=== PATIENT | female | born 2000 ===

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

== ENCOUNTER 2018-06-01 15:47 | Emergency (ER) | payer MEDICAID, OTHER ==
--- NOTE | 2018-06-01 16:31 | ED PDOC ---
HPI: Abdomen Time Seen by Provider: 06/01/18 16:19 Chief Complaint (Nursing): Abdominal Pain History Per: Patient Onset/Duration Of Symptoms: Other (3 weeks) Current Symptoms Are (Timing): Still Present Severity: Mild Location Of Pain/Discomfort: RLQ, LLQ Quality Of Discomfort: Unable To Describe Associated Symptoms: Nausea, Vomiting, Diarrhea. denies: Fever, Urinary Symptoms Exacerbating Factors: None Additional Complaint(s): Lower abd pain bilat x 3 weeks assoc with NVD, blody stools and anorexia. Denies fever or urinary sxs Past Medical History Vital Signs: Last Vital Signs Temp 97.6 F 06/01/18 16:05 Pulse 75 06/01/18 16:05 Resp 18 06/01/18 16:05 BP 96/60 L 06/01/18 16:05 Pulse Ox 99 06/01/18 16:05 - Medical History PMH: No Chronic Diseases - Family History Family History: States: Unknown Family Hx - Home Medications Home Medications: Ambulatory Orders Medication Instructions Recorded Doxylamine/Pyridoxine HCl (B6) 1 each PO QPM #15 tablet. 04/23/17 [Diclekvng Bar 10-10 mg Tablet] Nitrofurantoin Macrocrystals 100 mg PO BID #14 cap 04/23/17 [Macrobid] Vit Calc,Iron,Folic 1 each PO DAILY #30 tablet 04/23/17 [ Vitamins] Doxycycline Monohydrate 100 mg PO BID #30 tablet 12/07/17 Ibuprofen [Motrin Tab] 600 mg PO Q8 PRN #60 tab 12/07/17 metroNIDAZOLE [Flagyl] 500 mg PO BID #30 tab 12/07/17 - Allergies Allergies/Adverse Reactions: Allergies Allergy/AdvReac Type Severity Reaction Status Date / Time No Known Allergies Allergy Verified 06/01/18 16:04 Review of Systems ROS Statement: Except As Marked, All Systems Reviewed And Found Negative Gastrointestinal: Positive for: Nausea, Vomiting, Abdominal Pain, Diarrhea, Hematochezia Physical Exam - Reviewed Nursing Documentation Reviewed: Yes Vital Signs Reviewed: Yes - Physical Exam Appears: Positive for: Non-toxic, No Acute Distress Head Exam: Positive for: ATRAUMATIC, NORMAL INSPECTION, NORMOCEPHALIC Skin: Positive for: Normal Color, Warm, DRY Eye Exam: Positive for: EOMI, Normal appearance, PERRL ENT: Positive for: Normal ENT Inspection Neck: Positive for: Normal, Painless ROM Cardiovascular/Chest: Positive for: Regular Rate, Rhythm Respiratory: Positive for: CNT, Normal Breath Sounds Gastrointestinal/Abdominal: Positive for: Soft, Tenderness (Lower quad bilat.). Negative for: Mass Back: Positive for: Normal Inspection Extremity: Positive for: Normal ROM Neurologic/Psych: Positive for: Alert, Oriented - Laboratory Results Result Diagrams: 06/01/18 16:46 06/01/18 17:55 - ECG O2 Sat by Pulse Oximetry: 99 Disposition - Clinical Impression Clinical Impression: Abdominal pain - Patient ED Disposition Is Patient to be Admitted: Transfer of Care - Disposition Disposition: Transfer of Care Disposition Time: 19:00 Condition: FAIR Forms: [facility] (Sinhala) Patient Signed Over To: Giovani Koehler
[2018-06-01 16:49] LABS: BASO # 0.1 K/uL (0.0-0.2); BASO % 1.3 % (0.0-2.0); EOS # 0.2 K/uL (0.0-0.7); HEMOGLOBIN 13.6 g/dL (12.0-16.0); LYMPH # 2.3 K/uL (1.0-4.3); LYMPH % 34.1 % (20.0-40.0); MEAN CELL VOLUME 82.9 fl (81.0-99.0); MEAN CORPUSCULAR HEMOGLOBIN 26.8 pg (27.0-31.0); MEAN CORPUSCULAR HGB CONC 32.4 g/dL (33.0-37.0); MEAN PLATELET VOLUME 8.6 fl (7.2-11.7); MONO # 0.6 K/uL (0.0-0.8); MONO % 8.3 % (0.0-10.0); NEUT # 3.7 K/uL (1.8-7.0); NEUT % 53.3 % (50.0-75.0); RBC 5.06 Mil/uL (3.80-5.20); RED CELL DISTRIBUTION WIDTH 13.9 % (11.5-14.5); WHITE BLOOD COUNT 6.9 K/uL (4.8-10.8)
[2018-06-01] MEDS ORDERED: Sodium Chloride 0.9% 50 ML IV ONE (17:27)
[2018-06-01] MEDS ORDERED: Iohexol 300 100 ML IJ ONE (17:27)
[2018-06-01 18:16] LABS: ALB/GLOB RATIO 1.2 (1.0-2.1); ALBUMIN 3.9 g/dL (3.5-5.0); ALT/SGPT 24 U/L (9-52); AST/SGOT 20 U/L (14-36); BLOOD UREA NITROGEN 12 mg/dl (7-17); GFR NON-AFRICAN AMERICAN > 60
[2018-06-01] MEDS ORDERED: Potassium Chloride 20 mEq ER Tab PO ONE ×2 (18:19→19:11)
--- NOTE | 2018-06-01 18:47 | CT ---
Date of service: 06/01/2018 PROCEDURE: CT Abdomen and Pelvis with contrast HISTORY: Unspecified abdominal pain. Negative test (concurrent with this examination). Vomiting. COMPARISON: None. TECHNIQUE: Intravenous contrast dose: 80 cc Omnipaque 300. Radiation dose: Total exam DLP = 202.45 mGy-cm. This CT exam was performed using one or more of the following dose reduction techniques: Automated exposure control, adjustment of the mA and/or kV according to patient size, and/or use of iterative reconstruction technique. FINDINGS: LOWER THORAX: Unremarkable. LIVER: Unremarkable. No gross lesion or ductal dilatation. GALLBLADDER AND BILE DUCTS: Unremarkable. PANCREAS: Unremarkable. No gross lesion or ductal dilatation. SPLEEN: Unremarkable. ADRENALS: Unremarkable. No mass. KIDNEYS AND URETERS: Unremarkable. No hydronephrosis. No solid mass. VASCULATURE: Unremarkable. No aortic aneurysm. No atherosclerotic calcification or mural plaque present. BOWEL: Constipation without fecal impaction or obstruction. APPENDIX: A normal appendix is visualized in it's entirety. PERITONEUM: Trace free fluid identified in the pelvis/cul de sac. No free air. LYMPH NODES: Unremarkable. No enlarged lymph nodes. BLADDER: Unremarkable. REPRODUCTIVE: Heterogeneous uterus with prominent endometrium. This finding would be better evaluated with pelvic ultrasound. BONES: No acute fracture. OTHER FINDINGS: None. IMPRESSION: Heterogeneous uterus, prominent endometrial echo complex. Pelvic ultrasound advised. Trace free fluid identified in the pelvis/cul de sac. Additional benign and/or incidental findings described above.
--- NOTE | 2018-06-01 20:11 | ED PDOC ---
- Laboratory Results Result Diagrams: 06/01/18 16:46 06/01/18 17:55 - ECG O2 Sat by Pulse Oximetry: 98 Medical Decision Making Medical Decision Makin:00 Patient endorsed to this provider from Dr. Robison. Pending ultrasound. 20:46 Transvaginal US Findings Uterus Measures 6.9 x 3.5 x 4.4 cm. Normal in size and appearance. No fibroid or other mass lesion seen. Endometrium Measures 9 mm in diameter. Unremarkable. Cervix No cervical abnormality identified. Right ovary Measures 2.6 x 1.3 x 2.8 cm. No solid mass. Normal flow. Ovarian follicles are seen. Left ovary Measures 2.4 x 1.8 x 1.7 cm. No solid mass. Normal flow. Follicle/cyst measures 1.1 x 1.1 x 0.9 cm with multiple small follicles. Free fluid No significant free fluid noted. Other Findings None. Impression 1. Bilateral ovarian follicles. 2. No acute pathology. Patient is very well appearing, eating pork rinds in bed Informed of results, advised diet and lifestyle modification, and PPI Referral given to clinic Return precautions were given -- Scribe Attestation: Documented by Kaushik Joy acting as a scribe for Giovani Koehler MD. Provider Scribe Attestation: All medical record entries made by the Scribe were at my direction and personally dictated by me. I have reviewed the chart and agree that the record accurately reflects my personal performance of the history, physical exam, medical decision making, and the department course for this patient. I have also personally directed, reviewed, and agree with the discharge instructions and disposition. Disposition - Clinical Impression Clinical Impression: Abdominal pain - POA Present On Arrival: None - Disposition Referrals: [facility] [Outside] Disposition: Routine/Home Disposition Time: 20:45 Condition: FAIR Prescriptions: Omeprazole 20 mg PO DAILY #30 capsule. Instructions: Bloody Stools, Adult (DC) Forms: [facility] (Persian)
[2018-06-01 21:09] VITALS: BP 103/67; PULSE 68; RESP 18; TEMP 98.4
[2018-06-02 02:49] VITALS: O2SAT 98
--- NOTE | 2018-06-02 07:38 | US ---
Date of service: 06/01/2018 PROCEDURE: HISTORY: abnormal CT findings COMPARISON: TECHNIQUE: FINDINGS: The uterus is normal size. The endometrium measures 9 millimeters. Both ovaries demonstrated normal sonographic appearance. There is no free fluid the pelvis. IMPRESSION: Normal pelvic ultrasound.
== END 2018-06-01 21:12 | disposition home or self-care (01) ==
LOC: H.ER 15:47
DX: R10.30 Lower abdominal pain, unspecified (principal); N83.01 Follicular cyst of right ovary; N83.02 Follicular cyst of left ovary
CPT/HCPCS: 74177; 76830; 80053; 81025; 85025; 99285; Q9967